=== PATIENT | male | born 1955 | race Caucasian/White ===

== ENCOUNTER 2020-04-02 14:21 | Emergency (ER) | payer BC ==
[~2020-04-02] VITALS: Ht 177.8 cm; Wt 81.6 kg
[2020-04-02 14:25] VITALS: Ht 177.8 cm; Wt 81.6 kg
[2020-04-02 15:58] VITALS: BP 126/72
== END 2020-04-02 15:50 | disposition home or self-care (01) ==
LOC: ED 14:21
DX: M10.9 Gout, unspecified (principal)